=== PATIENT | male | born 1985 | race Two or more races ===

== ENCOUNTER 2017-05-12 12:08 | Inpatient (IN) | payer MEDICAID ==
[~2017-05-12] VITALS: Ht 167.6 cm; Wt 63.5 kg
--- NOTE | 2017-05-12 12:20 | NUR ---
Dr Contreras at the bedside for MSE.
[2017-05-12] MEDS ORDERED: ONDANSETRON IV *ER 4 MG/2 ML VIAL IV ONE (12:30)
[2017-05-12] MEDS ORDERED: IV NS 1000 ML 1,000 ML IV ONE (12:30)
[2017-05-12] MEDS ORDERED: MORPHINE SULFATE 4 MG/1 ML DISP.SYRIN IV ONE ×3 (12:30→20:15)
[2017-05-12] MEDS ORDERED: MORPHINE SULFATE 4 MG/1 ML DISP.SYRIN ONE ×2 (12:45→15:11)
[2017-05-12] MEDS ORDERED: ONDANSETRON 4 MG/2 ML VIAL ONE (12:45)
--- NOTE | 2017-05-12 12:52 | NUR ---
LAPChanelle officer here for report.
[2017-05-12] MEDS ORDERED: HYDROCODONE/APAP 5-325MG TABLET PO PRN (14:15)
[2017-05-12] MEDS ORDERED: ONDANSETRON 4 MG/2 ML VIAL IV PRN (14:15)
[2017-05-12] MEDS ORDERED: MORPHINE SULFATE 2 MG/1 ML DISP.SYRIN IV PRN (14:15)
[2017-05-12] MEDS ORDERED: ACETAMINOPHEN 325 MG TABLET PO PRN (14:15)
[2017-05-12] MEDS ORDERED: HYDROCODONE/APAP 10-325 MG TABLET PO PRN (14:15)
[2017-05-12] MEDS ORDERED: MAGNESIUM HYDROXIDE 30 ML LIQUID UDC PO PRN (14:15)
[2017-05-12 14:19] LABS: BASOPHILS # (AUTO) 0.1 K/uL (0.0-8.0); BASOPHILS % (AUTO) 0.6 % (0.0-2.0); EOSINOPHILS # (AUTO) 0.2 K/uL (0.0-0.7); EOSINOPHILS % (AUTO) 1.3 % (0.0-7.0); HEMATOCRIT 46.3 % (36.7-47.1); HEMOGLOBIN 15.6 g/dL (12.5-16.3); LYMPHOCYTES % (AUTO) 14.5 % (20.5-51.5); MEAN CORPUSCULAR HEMOGLOBIN 28.7 uug (23.8-33.4); MEAN CORPUSCULAR HGB CONC 34 g/dL (32.5-36.3); MEAN CORPUSCULAR VOLUME 85.4 fL (73.0-96.2); MONOCYTES # (AUTO) 0.7 K/uL (2.0-10.0); MONOCYTES % (AUTO) 4.8 % (0.0-11.0); NEUTROPHILS # (AUTO) 11.1 K/uL (1.8-8.9); NEUTROPHILS % (AUTO) 78.8 % (38.5-71.5); PLATELET COUNT (AUTO) 281 K/uL (152-348); RED BLOOD CELL COUNT(AUTO) 5.42 MIL/uL (4.06-5.63)
[2017-05-12 14:25] LABS: CREATININE 0.9 mg/dL (0.6-1.3); POTASSIUM 3.5 mmol/L (3.5-5.1)
[2017-05-12 14:31] LABS: TOTAL PROTEIN, SERUM 8.3 g/dL (6.4-8.2)
--- NOTE | 2017-05-12 15:05 | NUR ---
[facility] SWAB COLLECTED AND SENT TO LAB. BELONGING LIST COMPLETED. PT'S AT THE BEDSIDE.
--- NOTE | 2017-05-12 15:30 | NUR ---
Patient arrived from ER via gurney, accompanied by family/spouse. Patient is alert, in no distress. Patient has left lower extremity splint. Pt is admitted to [facility]. Dx: Left fibula malleolus LLE fx, under the care of Dr. Karthik Mooney. Belonging list done, admission process and care plan initiated. New admission orders done by MD. Safety measures in place, will continue to monitor.
[2017-05-12 15:45] VITALS: BP 116/74
[2017-05-12] MEDS ORDERED: MORPHINE SULFATE 4 MG/1 ML DISP.SYRIN IV PRN ×2 (15:45→19:45)
--- NOTE | 2017-05-12 18:30 | NUR ---
Patient signed consent for planned surgery tomorrow.
--- NOTE | 2017-05-12 19:35 | NUR ---
RECEIVED PATIENT AWAKE IN BED WITH FAMILY AT BEDSIDE. PATIENT IS A/O X4. MAORI SPEAKING ONLY AND REQUIRES CONSTRUCTION EQUIPMENT OPERATOR. C/O PAIN, PATIENT STATED, "PAIN IS 100." PATIENT WAS PREVIOUSLY MEDICATED WITH MS 2MG IV PER DAYSHIFT, INEFFECTIVE AT THIS TIME. WILL CALL OUT TO DR. CHA FOR FURTHER ORDERS. VSS. H/L INTACT AND PATENT. LLE NOTED WITH SPLINT COVERED WITH THEO BANDAGE. SENSATION AND CAPILLARY REFILL NOTED TO TOES, WNL. CALL LIGHT IN REACH. ALL NEEDS ATTENDED. WILL CONTINUE TO MONITOR.
[2017-05-12] MEDS ORDERED: MORPHINE SULFATE 2 MG/1 ML DISP.SYRIN IV ONE (19:45)
--- NOTE | 2017-05-12 19:45 | NUR ---
SPOKE WITH DR. CHA, AND RECEIVED ORDER FOR MORPHINE TO BE CHANGED TO Q3 PRN AND ALSO RECEIVED VERBAL OK FOR PATIENT TO HAVE MS 2MG IV X1 NOW FOR SEVERE PAIN. ALSO CLARIFIED WITH MD IF PATIENT CAN RECEIVED LOVENOX TONIGHT. OK TO GIVE PER MD. DRAPERY INSPECTOR NOTIFIED. WILL CONTINUE TO MONITOR.
[2017-05-12 19:57] LABS: *BILIRUBIN,URIN NEGATIVE (NEGATIVE); *BLOOD, URINE NEGATIVE (NEGATIVE); *CLARITY,URINE CLEAR (CLEAR); *COLOR,URINE YELLOW (YELLOW); *KETONES,URINE TRACE (NEGATIVE); *PROTEIN,URINE NEGATIVE (NEGATIVE); *UROBILINOGEN,URINE 0.2 E.U./dl (NORMAL); LEUKOCYTE ESTERASE ,URINE NEGATIVE (NEGATIVE); NITRITE, URINE NEGATIVE (NEGATIVE); UGLUCOSE NEGATIVE (NEGATIVE)
[2017-05-12 20:00] VITALS: BP 102/58
--- NOTE | 2017-05-12 20:15 | NUR ---
PATIENT GIVEN MS 2MG IV PER RECYCLING OPERATOR. VSS. CALL LIGHT IN REACH. ALL NEEDS ATTENDED.
[2017-05-12 20:22] LABS: MUCUS,URINE MANY /LPF (0-FEW); WBC,URINE 0-3 /HPF (0-3)
[2017-05-12] MEDS ORDERED: ENOXAPARIN SODIUM 40 MG/0.4 ML DISP.SYRIN SQ SCH (21:00)
--- NOTE | 2017-05-12 21:00 | NUR ---
PATIENT AWAKE IN BED. STATED PAIN IS A "4" ON SCALE, MILDLY EFFECTIVE. WILL CONTINUE TO MONITOR AND ASSESS.
[2017-05-13] MEDS: IV D5/ 0.9% NACL 1,000 ML IV PRN ×2 (00:42→13:48)
[2017-05-13 04:27] VITALS: BP 96/43
[2017-05-13 05:50] VITALS: BP 97/54
[2017-05-13] MEDS: MORPHINE SULFATE 4 MG/1 ML DISP.SYRIN IV PRN ×4 (06:02→20:26)
--- NOTE | 2017-05-13 06:11 | NUR ---
PATIENT AWAKE IN BED. SLEPT AT SMALL INTERVALS. RECEIVED NEW ORDER FROM DR. FLORENTINO LAST NIGHT TO INCREASE MORPHINE TO 4MG IV Q3 PRN. PATIENT IS C/O SEVERE PAIN, 01/12. RECHECKED BP 97/54. ALL OTHER VSS. PATIENT RECEIVING IVF ORDERED PER DR. FLORENTINO AND PT, GIVEN MORPHINE 4MG IV PRN PER BURN OUT TENDER LACE. NO RESP. DISTRESS NOTED. CALL LIGHT IN REACH. ALL NEEDS ATTENDED. WILL CONTINUE TO MONITOR.
--- NOTE | 2017-05-13 06:26 | NUR ---
PATIENT KEPT NPO SINCE MIDNIGHT, ORDERED. ALL NEEDS ATTENDED.
[2017-05-13 06:53] LABS: BASOPHILS % (AUTO) 0.5 % (0.0-2.0); EOSINOPHILS # (AUTO) 0.3 K/uL (0.0-0.7); LYMPHOCYTES # (AUTO) 2.8 K/uL (20.0-40.0); LYMPHOCYTES % (AUTO) 30.9 % (20.5-51.5); MEAN CORPUSCULAR HEMOGLOBIN 29.2 uug (23.8-33.4); MEAN CORPUSCULAR HGB CONC 34 g/dL (32.5-36.3); MEAN CORPUSCULAR VOLUME 85.6 fL (73.0-96.2); MONOCYTES # (AUTO) 0.8 K/uL (2.0-10.0); MONOCYTES % (AUTO) 8.5 % (0.0-11.0); NEUTROPHILS # (AUTO) 5.2 K/uL (1.8-8.9); NEUTROPHILS % (AUTO) 57.1 % (38.5-71.5); PLATELET COUNT (AUTO) 266 K/uL (152-348); RED BLOOD CELL COUNT(AUTO) 4.83 MIL/uL (4.06-5.63)
[2017-05-13 07:13] LABS: HEMATOCRIT 41.3 % (36.7-47.1)
[2017-05-13 07:14] LABS: HEMOGLOBIN 14.1 g/dL (12.5-16.3)
[2017-05-13 07:59] LABS: CREATININE 0.9 mg/dL (0.6-1.3); MAGNESIUM 1.7 mg/dL (1.8-2.4); PHOSPHOROUS 4.6 mg/dL (2.5-4.9); POTASSIUM 3.3 mmol/L (3.5-5.1)
[2017-05-13 08:39] LABS: THYROID STIMULATING HORMONE 2.423 mIU/mL (0.358-3.740)
--- NOTE | 2017-05-13 10:15 | NUR ---
Patient signed consent for surgery via pasteurizer. Audit Analyst ID [id number]. Consent placed in patient's chart. Surgery to be scheduled at 1330 05/13/17.
[2017-05-13] MEDS ORDERED: POLYMYXIN B SULFATE 500,000 UNITS, BACITRACIN 50,000 UNITS, NORMAL SALINE 20 ML MC ONE ×3 (11:00)
[2017-05-13 11:45] VITALS: BP 93/55
[2017-05-13] MEDS ORDERED: IV NS 1000 ML 1,000 ML IV ONE (12:15)
[2017-05-13 12:40] VITALS: BP 100/61
--- NOTE | 2017-05-13 13:10 | NUR ---
Patient picked up by surgery team. Patient is alert, in no distress. Report given to PROPERTY MANAGEMENT SUPERVISOR.
--- NOTE | 2017-05-13 13:35 | NUR ---
Patient arrived at unit, surgery rescheduled at 1500
[2017-05-13 15:25] VITALS: BP 95/54
--- NOTE | 2017-05-13 15:40 | NUR ---
Patient left the unit, picked up by surgery for left ankle procedure. Magnesium IV will be given once patient arrives on the floor.
[2017-05-13] MEDS ORDERED: LIDOCAINE HCL 2% 20 ML VIAL MC ONE (15:59)
[2017-05-13] MEDS ORDERED: ONDANSETRON 4 MG/2 ML VIAL IV ONE (15:59)
[2017-05-13] MEDS ORDERED: SEVOFLURANE 250 ML BOTTLE IH ONE (15:59)
[2017-05-13] MEDS ORDERED: PROPOFOL 200 MG/20 ML BOTTLE IV ONE (15:59)
[2017-05-13] MEDS ORDERED: DEXAMETHASONE SOD PHOSPHATE 4 MG INJ IV ONE (15:59)
[2017-05-13] MEDS ORDERED: CEFAZOLIN 1 G VIAL MC ONE (15:59)
[2017-05-13] MEDS ORDERED: HYDROMORPHONE 2 MG/1 ML DISP.SYRIN ONE (16:26)
[2017-05-13] MEDS ORDERED: MEPERIDINE 25 MG/1 ML DISP.SYRIN ONE (17:57)
[2017-05-13] MEDS ORDERED: KETOROLAC TROMETHAMINE 30 MG INJ ONE (17:58)
[2017-05-13] MEDS ORDERED: POTASSIUM CHLORIDE 20 MEQ in IV D5 1/2 NS 1000 ML 1,000 ML IV PRN (18:30)
[2017-05-13] MEDS ORDERED: FENTANYL CITRATE 100 MCG/2 ML AMPUL ONE (18:33)
[2017-05-13] MEDS ORDERED: IV D5W-0.45% NS +20 KCL 1,000 ML IV ONE (18:36)
[2017-05-13] MEDS ORDERED: CEFAZOLIN 50 ML IV ONE (18:36)
--- NOTE | 2017-05-13 18:45 | NUR ---
Patient arrived at the unit from surgery via gurney. Patient is alert, in no distress. Left lower leg with splint and soft cast secured and in place. Pt able to wiggle toes. Family at the bedside. Will endorse to mine shifter RN.
--- NOTE | 2017-05-13 19:15 | NUR ---
New orders taken from Dr. Guidry. Hector MARTE, hold Lovenox for tonight 2100. Will endorse to night order selector RN.
[2017-05-13 20:00] VITALS: BP 117/69
--- NOTE | 2017-05-13 20:00 | NUR ---
PATIENT AWAKE, ALERT,IN NO DISTRESS,VOIDED FREELY,LEFT LOWER LEG DRESSING C/D/I WITH SHORT LEG SPLINT ON, ELEVATED ON PILLOW,MORPHINE 4 MG IV ADMIN FOR PAIN CONTROL , NEUROVASCULAR CHEK WNL.VITAL SIGNS BEEN STABLE, CONTINUE CLOSELY MONITOR.
[2017-05-13] MEDS: POTASSIUM CHLORIDE 10 MEQ in IV NORMAL SALINE 50 ML IV SCH (20:27)
[2017-05-13] MEDS: MAGNESIUM SULFATE/D5W 100 ML IV SCH (22:12)
[2017-05-14] MEDS: MAGNESIUM SULFATE/D5W 100 ML IV SCH (00:22)
[2017-05-14] MEDS: POTASSIUM CHLORIDE 10 MEQ in IV NORMAL SALINE 50 ML IV SCH (00:23)
[2017-05-14] MEDS: CEFAZOLIN 1 G in PREMIXED 1 EACH IV SCH ×2 (02:26→11:32)
[2017-05-14] MEDS: MORPHINE SULFATE 4 MG/1 ML DISP.SYRIN IV PRN ×2 (04:29→08:24)
[2017-05-14 04:41] VITALS: BP 104/49
--- NOTE | 2017-05-14 06:48 | NUR ---
PATIENT SLEEP INTERMITTENTLY,ENCOURAGE TO USE INCENTIVE SPIROMETER,ICE PACK TO LLE.
[2017-05-14 06:52] LABS: CARBON DIOXIDE 25 mmol/L (21-32); CHLORIDE 104 mmol/L (98-107); CREATININE 0.7 mg/dL (0.6-1.3); GLUCOSE 146 mg/dL (74-106); MAGNESIUM 2.4 mg/dL (1.8-2.4); POTASSIUM 3.9 mmol/L (3.5-5.1); UREA NITROGEN, BLOOD 11 mg/dL (7-18)
[2017-05-14] MEDS ORDERED: ENOXAPARIN SODIUM 40 MG/0.4 ML DISP.SYRIN SQ SCH (09:00)
[2017-05-14] MEDS: HYDROCODONE/APAP 10-325 MG TABLET PO PRN ×2 (10:00→13:53)
[2017-05-14 11:30] VITALS: BP 146/62
--- NOTE | 2017-05-14 16:23 | NUR ---
1600 PATIENT DISCHARGED VIA WHEEL CHAIR ACCOMPANIED BY BROTHER GILBERTO, PATIENT IN STABLE CONDITION, NO COMPLAIN OF PAIN AT THIS TIME, NO DISCOMPORT. PATIENT TEACHING GIVEN TO PATIENT TRANSLATED BY TAJIK SPEAKING INTENSIVE CARE MEDICINE SPECIALIST AND VERBALIZED UNDERSTANDING. IV ON LEFT ARM WERE REMOVED
== END 2017-05-14 16:00 | disposition home or self-care (01) | DRG 313 ==
LOC: ER 12:11 → MED 15:30
PROC: 0QSK04Z Reposition Left Fibula with Internal Fixation Device, Open Approach (ICD-10-PCS; principal; 2017-05-13 13:30)
PROC: 0QHH04Z Insertion of Internal Fixation Device into Left Tibia, Open Approach (ICD-10-PCS; principal; 2017-05-13 13:30)
DX: S82.842A Displaced bimalleolar fracture of left lower leg, initial encounter for closed fracture (principal); Z72.0 Tobacco use; V03.00XA Pedestrian on foot injured in collision with car, pick-up truck or van in nontraffic accident, initial encounter; Y93.H2 Activity, gardening and landscaping; Y99.9 Unspecified external cause status; Y92.89 Other specified places as the place of occurrence of the external cause
CPT/HCPCS: 36415; 73590; 73600; 73620; 76000; 83735; 84100; 84443; 85025; 97116; A4663; J0690; J1100; J1170; J1650; J1885; J2175; J2270; J2405; J3010; J3475; J3480; J3490; J7030; J7042